=== PATIENT | male | born 1960 | race Caucasian/White ===

== ENCOUNTER → 2021-10-15 | Outpatient (CLI) | payer BC ==
--- NOTE | 2021-10-15 12:25 | XR ---
EXAMINATION TYPE: XR chest 2V DATE OF EXAM: 10/15/2021 COMPARISON: NONE HISTORY: Shortness of breath. TECHNIQUE: Frontal and lateral views of the chest are obtained. FINDINGS: Slightly suboptimal due to large body habitus. Slightly elevated left hemidiaphragm. There is no suspicious focal air space opacity, pleural effusion, or pneumothorax seen. The cardiac silhou ette size is upper limits of normal. The osseous structures are intact. IMPRESSION: No acute process.
== END | disposition home or self-care (01) ==
LOC: RADXRMAIN 12:02
PROVIDERS: ATTEND Internal Medicine
DX: R06.02 Shortness of breath (principal)
CPT/HCPCS: 71046

== ENCOUNTER → 2022-07-23 | Outpatient (CLI) | payer OTHER ==
--- NOTE | 2022-07-23 10:21 | XR ---
EXAMINATION TYPE: XR knee limited bilateral DATE OF EXAM: 07/23/2022 10:13 AM INDICATION: Patient age:Male; 61 years old; Reason for study: M25.561 M25.562 Pain in knees/Arthritis; [facility]. COMPARISON: None. TECHNIQUE: Both knees were examined in frontal, lateral, and oblique projections. FINDINGS: No acute fracture or dislocation. Bilateral tricompartmental joint space narrowing with m arginal osteophytosis. No soft tissue swelling or joint effusion. There is spurring of the superior p ole of the left patella. IMPRESSION: 1. No acute osseous pathology. 2. Moderate bilateral tricompartmental osteoarthritic changes.
== END | disposition home or self-care (01) ==
LOC: RADXRMAIN 09:55
PROVIDERS: ATTEND Family Medicine
DX: M17.0 Bilateral primary osteoarthritis of knee (principal)

== ENCOUNTER → 2022-11-05 | Outpatient (CLI) | payer BC ==
--- NOTE | 2022-11-05 14:24 | XR ---
EXAMINATION TYPE: XR lumbosacral spine min 4V DATE OF EXAM: 11/05/2022 Comparison: None Clinical History: 62-year-old male M54.50 Findings: 5 lumbar type vertebral bodies. Hypertrophic facet arthropathy mid to lower lumbar spine. Moderate de generative disc disease throughout. Degenerative trace grade 1 retrolisthesis L1-L2, L2-L3, L3-L4. Ve rtebral body heights are preserved. There appears to be a small superior endplate Schmorl's node ante riorly at L1. Slight posterior angulation at the upper coccygeal segments. Impression: 1. Hypertrophic facet arthropathy throughout with degenerative grade 1 retrolistheses L1-L4 levels. M oderate degenerative disc disease throughout. No vertebral compression collapse. 2. Findings suggest an age indeterminate tailbone fracture along the upper coccygeal segments with sl ight posterior angulation.
== END | disposition home or self-care (01) ==
LOC: RADXRMAIN 13:28
PROVIDERS: ATTEND Physical Medicine & Rehabilitation
DX: M47.816 Spondylosis without myelopathy or radiculopathy, lumbar region (principal); M43.16 Spondylolisthesis, lumbar region; M51.36 Other intervertebral disc degeneration, lumbar region
CPT/HCPCS: 72110